=== PATIENT | male | born 1975 | race Two or more races ===

== ENCOUNTER 2017-02-12 17:30 | Emergency (ER) | payer SELFPAY ==
[~2017-02-12] VITALS: Ht 167.6 cm; Wt 68.0 kg
[2017-02-12 17:47] VITALS: BP 115/70
== END 2017-02-12 22:30 | disposition left against medical advice (07) ==
LOC: ER 17:30
DX: F10.229 Alcohol dependence with intoxication, unspecified (principal); Z53.21 Procedure and treatment not carried out due to patient leaving prior to being seen by health care provider